=== PATIENT | female | born 1930 | race Caucasian/White ===

== ENCOUNTER 2017-07-20 08:03 | Day surgery (SDC) | payer MEDICARE, BC ==
[~2017-07-20 08:03] MED LIST: Buffered Lidocaine 0.9% SYRIN* 5 ML/SYR SYRINGE INTRADERM ONE; Dexamethasone IV* 4 MG/ML 1 ML (4 MG) IV SLOW PU ONE; Famotidine IV* 10 MG/ML 2 ML (20 mg) IV ONE
[2017-07-20] MEDS ORDERED: Dexamethasone IV* 4 MG/ML 1 ML (4 MG) ONE (08:13)
[2017-07-20] MEDS ORDERED: ceFAZolin 2 GM PREMIX (*) 2 GM/50 ML BAG IVPB ONE (08:13)
[2017-07-20] MEDS ORDERED: Famotidine IV* 10 MG/ML 2 ML (20 mg) ONE (08:13)
[2017-07-20] MEDS ORDERED: Buffered Lidocaine 0.9% SYRIN* 5 ML/SYR SYRINGE ONE (08:14)
[2017-07-20] MEDS ORDERED: Midazolam* 1 MG/ML 10 ML VIAL (10 MG) ONE (09:06)
[2017-07-20] MEDS ORDERED: fentaNYL* 50 MCG/ML 2 ML VIAL (100 MCG VIAL) ONE (09:06)
[2017-07-20] MEDS ORDERED: Lidocaine 1% MPF wEPI 200,000* 30 ML SDV ONE ×2 (09:26→11:33)
[2017-07-20] MEDS ORDERED: Bupivacaine 0.25% SDV* 30 ML ONE (09:26)
[2017-07-20] MEDS ORDERED: Mineral Oil Sterile, TOPICAL* 25 ML BTL ONE (09:26)
[2017-07-20] MEDS ORDERED: Lidocaine 1% MPF* 2 ML VIAL ONE (09:28)
[2017-07-20] MEDS ORDERED: Naloxone* 0.4 MG/ML 1 ML VIAL IV PRN (09:28)
[2017-07-20] MEDS ORDERED: Lidocaine 1% INJ* 10 MG/ML 30 ML SDV ONE (09:29)
[2017-07-20] MEDS ORDERED: Ondansetron INJ* 2 MG/ML VIAL ONE (09:40)
[2017-07-20] MEDS ORDERED: Propofol* 10 MG/ML 20 ML BTL IV PUSH ONE (09:40)
[2017-07-20 13:10] VITALS: BP 137/75
== END 2017-07-20 13:23 | disposition home or self-care (01) ==
LOC: OR 08:03
PROVIDERS: ATTEND Plastic Surgery
DX: C44.319 Basal cell carcinoma of skin of other parts of face (principal); E11.9 Type 2 diabetes mellitus without complications; Z79.84 Long term (current) use of oral hypoglycemic drugs; Z85.038 Personal history of other malignant neoplasm of large intestine; Z85.41 Personal history of malignant neoplasm of cervix uteri; R42 Dizziness and giddiness; M19.90 Unspecified osteoarthritis, unspecified site; Z86.73 Personal history of transient ischemic attack (TIA), and cerebral infarction without residual deficits
CPT/HCPCS: 88305; 88331; 88332; A9270-GY; J0690; J1100; J2001; J2250; J2405; J2704; J3010

== ENCOUNTER 2019-08-25 09:03 | Emergency (ER) | payer MEDICARE, BC ==
--- NOTE | 2019-08-25 09:38 | ED ---
Adult Trauma - HPI Summary HPI Summary: 89 year old female presents with the rib pain after fall today. She states that she ended up losing her balance and falling. She was rushing to the bathroom. She states that it was a mechanical fall. She denies any chest pain or shortness breath prior to the fall. No dizziness. She states that after she fell she got the wind knocked out of her and felt SOB. pain is worst when she takes a deep breath. pain is mostly in the posterior ribs on left. She denies any abd pain. She is not on blood thinners. Denies any head injury. No loss consciousness. No neck pain. No other injury. She does have a history of vertigo. - History of Current Complaint Chief Complaint: EDFall Stated Complaint: FALL INJ PER PT Time Seen by Provider: 08/25/19 09:26 Pain Intensity: 7 - Allergy/Home Medications Allergies/Adverse Reactions: Allergies Allergy/AdvReac Type Severity Reaction Status Date / Time celecoxib [From Celebrex] Allergy Nausea And Verified 08/25/19 09:09 Vomiting Home Medications: Home Medications Meclizine TAB* [Antivert TAB*] 12.5 mg PO TID 02/17/13 [History Confirmed ] metFORMIN* [Glucophage*] 500 mg PO BID 02/17/13 [History Confirmed 08/25/19] Lactobacillus Acidophilus [Probiotic] 1 cap PO DAILY 01/07/15 [History Confirmed 08/25/19] Acetaminophen [Tylenol Extra Strength] 500 mg PO DAILY 12/13/17 [History Confirmed 08/25/19] Aspirin 81 mg CHEW TAB* [Aspirin Low Dose TAB*] 81 mg PO DAILY 12/13/17 [ History Confirmed 08/25/19] [place]-3 Fatty Acids/Fish Oil [Fish Oil 1200 mg] 1 cap PO DAILY 12/13/17 [ History Confirmed 08/25/19] Vitamin B Complex CAP* [B Complex CAP*] 1 cap PO DAILY 12/13/17 [History Confirmed 08/25/19] Furosemide TAB* [Lasix TAB*] 20 mg PO DAILY 08/25/19 [History Confirmed 08/25/19 ] Lovastatin (NF) [Mevacor (NF)] 40 mg PO DAILY 08/25/19 [History Confirmed ] Multivitamins/Minerals TAB* [Theragran/minerals TAB*] 1 tab PO DAILY 08/25/19 [ History Confirmed 08/25/19] Tetrahydrozoline HCl [Eye Drops] 1 drop BOTH EYES BID PRN 08/25/19 [History Confirmed 08/25/19] Turmeric 400 mg PO DAILY 08/25/19 [History Confirmed 08/25/19] traMADol TAB* [Ultram*] 50 mg PO BID PRN 08/25/19 [History Confirmed 08/25/19] PMH/Surg Hx/FS Hx/Imm Hx Endocrine/Hematology History: Reports: Hx Diabetes - TYPE 2 Denies: Hx Anticoagulant Therapy Cardiovascular History: Reports: Hx Angina, Hx Coronary Artery Disease, Hx Hypercholesterolemia - HYPERLIPIDEMIA, Hx Hypertension - controlled with furosemide Respiratory History: Reports: Hx Pneumonia GI History: Reports: Hx Gastroesophageal Reflux Disease - a couple years ago- cleared up- monitors diet, Hx Hiatal Hernia, Other GI Disorders - VIRAL GASTROENTERITIS Musculoskeletal History: Reports: Hx Arthritis - knees, back, Hx Back Problems Sensory History: Reports: Hx Cataracts, Hx Contacts or Glasses - uses mostly for reading, Hx Glaucoma - BOTH EYES Denies: Hx Hearing Aid Opthamlomology History: Reports: Hx Cataracts, Hx Contacts or Glasses - uses mostly for reading, Hx Glaucoma - BOTH EYES Neurological History: Reports: Hx Transient Ischemic Attacks (TIA), Other Neuro Impairments/Disorders - BELLS PALSEY, VERTIGO- YEARS AGO- LEFT EYE SL. CLOSED. PAIN CLINIC PT. - Cancer History Hx Chemotherapy: Yes - Surgical History Surgery Procedure, Year, and Place: CHOLECYSECTOMY @ [facility] – [place] MANY YEARS AGO. COLON RESECTION- 08/2014- [facility]. TONSILLECTOMY/ADENOIDECTOMY A CHILD Hx Anesthesia Reactions: No Infectious Disease History: No Infectious Disease History: Denies: Traveled Outside the [place] in Last 30 Days - Family History Known Family History: Positive: Non-Contributory - Social History Alcohol Use: None Substance Use Type: Reports: None Substance Use Comment - Amount & Last Used: tramadol and acetaminophen extra strength Smoking Status (MU): Never Smoked Tobacco Review of Systems Negative: Fever Positive: Other - rib pain left Positive: Shortness Of Breath. Negative: Cough All Other Systems Reviewed And Are Negative: Yes Physical Exam Triage Information Reviewed: Yes Vital Signs On Initial Exam: Initial Vitals Temp Pulse Resp BP Pulse Ox 97.3 F 76 18 173/67 95 08/25/19 09:05 02/28/20 09:05 08/25/19 09:05 08/25/19 09:05 08/25/19 09:05 Vital Signs Reviewed: Yes Appearance: Positive: Well-Appearing Skin: Positive: Warm, Dry Head/Face: Positive: Normal Head/Face Inspection Eyes: Positive: Normal, EOMI, COREY, Conjunctiva Clear ENT: Positive: Pharynx normal, TMs normal Respiratory/Lung Sounds: Positive: Clear to Auscultation, Breath Sounds Present , Other - tenderness in left side of ribs Cardiovascular: Positive: Normal, RRR Abdomen Description: Positive: Nontender, Soft Bowel Sounds: Positive: Present Musculoskeletal: Positive: Normal Neurological: Positive: Normal Psychiatric: Positive: Normal Procedures - Sedation Patient Received Moderate/Deep Sedation with Procedure: No Diagnostics - Vital Signs Vital Signs Temp Pulse Resp BP Pulse Ox 08/25/19 09:05 97.3 F 76 18 173/67 95 - Laboratory Result Diagrams: 08/25/19 10:31 08/25/19 10:31 Lab Statement: Any lab studies that have been ordered have been reviewed, and results considered in the medical decision making process. - Radiology ribs Radiology Interpretation Completed By: Radiologist Summary of Radiographic Findings: IMPRESSION: NO FRACTURE IS SEEN. - EKG No standard instances Cardiac Rate: NL EKG Rhythm: Sinus Rhythm EKG Comparison: No Significant Change Summary of EKG Findings: sinus rhythm Re-Evaluation - Re-Evaluation First Eval Re-Evaluation Time: 10:18 Comment: patient now nausous Adult Trauma Course/Dx - Course Course Of Treatment: 89 year old female presents with the rib pain after fall today. She states that she ended up losing her balance and falling. She was rushing to the bathroom. She states that it was a mechanical fall. She denies any chest pain or shortness breath prior to the fall. No dizziness. She states that after she fell she got the wind knocked out of her and felt SOB. pain is worst when she takes a deep breath. pain is mostly in the posterior ribs on left. She denies any abd pain. She is not on blood thinners. Denies any head injury. No loss consciousness. No neck pain. No other injury. She does have a history of vertigo. On exam tenderness over left posterior ribs. ekg sinus rhythm. xray shows no fracture. lab wnl. patient has tramadol at home. encouraged to take deep breaths. told follow up with primary. patient understand and agrees with plan. - Diagnoses Differential Diagnosis/HQI/PQRI: Positive: Contusion(s), Fracture, Sprain Provider Diagnoses: Fall, Rib contusion Discharge ED - Sign-Out/Discharge Documenting (check all that apply): Patient Departure - Discharge Plan Condition: Good Disposition: HOME Patient Education Materials: Rib Contusion (ED) Referrals: Farhan Titus MD [Primary Care Provider] - Additional Instructions: continue normal pain meds, add on tyenlol every 6 hours take deep breathes throughout the day follow up with primary within 5 days Return to ED if develop fever or any new or worsening symptoms - Billing Disposition and Condition Condition: GOOD Disposition: Home
[2019-08-25] MEDS ORDERED: Ondansetron ODT TAB* 4 MG PO ONE (10:16)
[2019-08-25 10:37] LABS: ABS Eosinophils 0.1 10^3/ul (0-0.6); ABS Monocytes 0.5 10^3/ul (0-0.8); ABS Neutrophils 8.8 10^3/ul (1.5-7.7); Eosinophil % 0.9 %; Hematocrit 33 % (35-47); Hemoglobin 11.2 g/dL (12.0-16.0); Lymphocyte % 9.8 %; Mean Corpuscular HGB Conc 34 g/dL (31-36); Mean Corpuscular Hemoglobin 30 pg (27-31); Mean Corpuscular Volume 89 fL (80-97); Mean Platelet Volume 8.8 fL (7.4-10.4); Platelet Count 243 10^3/uL (150-450); Red Blood Count 3.72 10^6 /uL (3.70-4.87); Red Cell Distribution Width 14 % (10-15); White Blood Count 10.5 10^3/uL (3.5-10.8)
[2019-08-25] MEDS ORDERED: Acetaminophen TAB* 325 MG PO ONE (11:17)
[2019-08-25 11:28] LABS: Albumin 4.2 g/dL (3.2-5.2); Albumin/Globulin Ratio 1.4 (1-3); BUN/Creatinine Ratio 29.3 (8-20); Calcium 9.2 mg/dL (8.6-10.3); EGFR Non-African American 72.8 (>60); Globulin 2.9 g/dL (2-4); Potassium 4.1 mmol/L (3.5-5.0); Total Bilirubin 0.6 mg/dL (0.2-1.0); Total Protein 7.1 g/dL (6.4-8.9)
[2019-08-25] MEDS ORDERED: traMADol TAB* 50 MG PO ONE (11:31)
[2019-08-25 11:38] VITALS: BP 153/77
== END 2019-08-25 11:36 | disposition home or self-care (01) ==
LOC: ED 09:03
DX: S20.219A Contusion of unspecified front wall of thorax, initial encounter (principal); W18.39XA Other fall on same level, initial encounter; Y92.9 Unspecified place or not applicable; E11.9 Type 2 diabetes mellitus without complications; I25.10 Atherosclerotic heart disease of native coronary artery without angina pectoris; E78.00 Pure hypercholesterolemia, unspecified; E78.5 Hyperlipidemia, unspecified; K21.9 Gastro-esophageal reflux disease without esophagitis; Z86.73 Personal history of transient ischemic attack (TIA), and cerebral infarction without residual deficits; Z90.49 Acquired absence of other specified parts of digestive tract; Z79.82 Long term (current) use of aspirin; Z79.84 Long term (current) use of oral hypoglycemic drugs; Z79.899 Other long term (current) drug therapy; Z88.6 Allergy status to analgesic agent
CPT/HCPCS: 36415; 80053; 85025; 93005; 99283; A9270-GY